=== PATIENT | female | born 2005 | race Caucasian/White ===

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

== ENCOUNTER 2023-05-26 08:44 | Outpatient (CLI) | payer OTHER, SELFPAY ==
--- NOTE | ~2023-05-26 | CT_ITS ---
Clinical Indication: Lymphadenopathy CT Scan of the Neck, Chest, Abdomen, and Pelvis with Contrast: Technique: Contiguous sections were acquired throughout the chest, abdomen, and pelvis after intraven ous administration of 37 cc of Omnipaque 350. Dose reduction technique was used on this scan by util izing automated exposure control and iterative reconstruction technique. The dose-length product (DLP ) was 746.71 mGy-cm. Findings: No definite cervical lymphadenopathy seen. Parotid and submandibular glands are unremarkabl e. There is no evidence of any significant mediastinal, hilar or axillary lymphadenopathy. The mediastin al soft tissues and vascular structures appear normal. There is no evidence of pleural or pericardial effusion. The lungs are clear. No pulmonary nodules or infiltrates are noted. The liver, spleen, pancreas, gallbladder, adrenals and kidneys are within normal limits. No evidence of aortic aneurysm. No lymphadenopathy. No bowel obstruction or bowel wall thickening. There is no evidence to suggest acute appendicitis. Urinary bladder is unremarkable. No definite adnexal mass seen. No ascites. Impression: No significant abnormalities seen. No lymphadenopathy evident. Reviewed, dictated and finalized at [facility]. [employer] Impression: No significant abnormalities seen. No lymphadenopathy evident.
== END 2023-05-26 08:45 | disposition home or self-care (01) ==
LOC: CHSIMG 08:46
PROVIDERS: PCP Internal Medicine; Visit Provider Internal Medicine
DX: R59.9 Enlarged lymph nodes, unspecified (principal)
CPT/HCPCS: 70491; 71260; 74177; Q9967